=== PATIENT | female | born 1935 | race Caucasian/White ===

== ENCOUNTER 2020-10-21 19:46 | Emergency (ER) | payer MEDICARE ==
[~2020-10-21] VITALS: Ht 160 cm; Wt 70.4 kg
--- NOTE | 2020-10-21 20:49 | RAD ---
Exam: CT head and cervical spine INDICATION: Fall, pain TECHNIQUE: Sequential axial images through the head and cervical spine were obtained without the admi nistration of IV contrast. Comparisons: None FINDINGS: Head: No focal parenchymal lesion or hemorrhage is identified. There is no midline shift or sulcal effaceme nt. No acute vascular territory infarction is identified. Carter-white distinction is preserved. The ventricular system is within normal limits without compression hydrocephalus. The basal cisterns are well maintained. The visualized portions of the paranasal sinuses and mastoid air cells are well-pneumatized. No acute fractures. Cervical spine: Straightening of the cervical spine which may be positional. Vertebral body heights are well-maintain ed. Fracture to the cervical spine is not identified. Multilevel spondylotic change in cervical spine with degenerative disc disease greatest at C3-C4, C4- C5. There is mild bilateral facet arthropathy also noted. Visualized paraspinal soft tissues are unremarkable. IMPRESSION: 1. No acute intracranial abnormality. 2. Negative CT C-spine for acute traumatic injury. Exposure: One or more of the following in the visualized dose reduction techniques were utilized for this examination: 1. Automated exposure control 2. Adjustment of the MA and/or KV according to patient size Use of iterative of reconstructive technique Electronically signed by: Halley Quinonez MD (10/21/2020 8:46 PM) JOSÉ
--- NOTE | 2020-10-21 21:00 | RAD ---
Exam: Left ankle 3 views INDICATION: Ankle pain/swelling TECHNIQUE: Frontal, lateral and oblique views of the left ankle Comparisons: None FINDINGS: There is an obliquely or acute fracture through the distal fibula. Additionally there is a fracture o f the posterior malleolus. Mild dissociation at the tibiotalar joint. There is diffuse surrounding so ft tissue swelling. Bone mineralization is normal. IMPRESSION: Fractures involving the posterior malleolus and lateral malleolus with mild dissociation at the tibio talar joint. Electronically signed by: Halley Quinonez MD (10/21/2020 8:58 PM) JOSÉ
--- NOTE | 2020-10-21 21:01 | RAD ---
Exam: Left knee 3 views INDICATION: Ankle pain/well TECHNIQUE: Frontal, lateral and oblique views of the right knee Comparisons: None FINDINGS: Bone mineralization is normal. There is a obliquely oriented fracture through the proximal fibula sudhakar physis. Joint spaces are well-maintained. Soft tissues are unremarkable. IMPRESSION: Obliquely oriented fracture of the proximal fibular diaphysis. Electronically signed by: Halley Quinonez MD (10/21/2020 8:59 PM) JOSÉ
[2020-10-21 22:07] LABS: BASO % 0 % (0-3); EOS # 0.1 x10^3/uL (0.0-0.7); EOS % 1 % (0-3); HEMATOCRIT 42.7 % (36.0-47.0); LYMPH # 0.8 x10^3/uL (1.0-4.8); LYMPH % 8 % (24-48); MEAN CORPUSCULAR HEMOGLOBIN 30 pg (25-35); MEAN CORPUSCULAR HGB CONC 33 g/dL (31-37); MEAN CORPUSCULAR VOLUME 93 fL (79-100); MONO # 0.6 x10^3/uL (0.0-1.1); MONO % 6 % (0-9); NEUT # 8.3 x10^3uL (1.8-7.7); NEUT % 84 % (31-73); PLATELET COUNT 201 x10^3/uL (140-400); RED BLOOD COUNT 4.61 x10^6/uL (3.50-5.40); RED CELL DISTRIBUTION WIDTH 13.9 % (11.5-14.5); WHITE BLOOD COUNT 9.9 x10^3/uL (4.0-11.0)
--- NOTE | 2020-10-21 22:17 | PHYS DOC ---
Past History Past Medical History: A-Fib, Dementia, Hypertension Past Surgical History: Other Additional Past Surgical Histo: unknown Smoking: Non-smoker Alcohol Use: None Drug Use: None General Adult EDM: Chief Complaint: ANKLE PROBLEM HPI: HPI: 85-year-old female presents via EMS with report of left ankle pain after a fall. Patient reports occurred just prior to arrival. Patient reports she was taking the trash outside and stepped on some uneven ground hearing a pop. Patient denies hitting her head or neck pain. Denies use of blood thinners. Denies known exposure to COVID-19. Patient reports she lives at the [facility]. Patient does have a history of mild dementia. Review of Systems: Review of Systems: Constitutional: Denies fever or chills Eyes: Denies redness or eye pain HENT: Denies nasal congestion or sore throat Respiratory: Denies cough or shortness of breath Cardiovascular: Denies chest pain or palpitations GI: Denies abdominal pain, nausea, or vomiting : Denies dysuria or hematuria Musculoskeletal: Denies back pain; reports left ankle pain and knee pain Integument: Denies rash or skin lesions Review of systems limited secondary to dementia Allergies: Allergies: Allergies Coded Allergies Type Severity Reaction Last Updated Verified Sulfa (Sulfonamide Antibiotics) Allergy Unknown 10/21/20 Yes Physical Exam: PE: Constitutional: Well developed, well nourished, no acute distress, non-toxic appearance HENT: Normocephalic, atraumatic Eyes: PERRL, EOMI, conjunctiva normal, no discharge Neck: Normal range of motion, no midline tenderness, supple Lungs & Thorax: No respiratory distress, equal chest rise and fall Abdomen: Soft, no tenderness; pelvis stable and nontender Skin: Warm, dry, no erythema, no rash Back: No tenderness, no CVA tenderness Extremities: Left medial and lateral malleoli are tenderness on palpation, DP and PT bilaterally +2. Some lateral proximal fibular tenderness appreciated. Neurologic: Alert and oriented X 3, normal motor function, normal sensory function, no focal deficits noted Psychologic: Affect normal, judgment normal Current Patient Data: Vital Signs: Vital Signs Date Time Temp Pulse Resp B/P (MAP) Pulse Ox O2 Delivery O2 Flow Rate FiO2 10/21/20 21:25 71 18 167/104 (125) 95 10/21/20 20:55 Room Air 10/21/20 19:59 98.1 EKG: EKG: @2301 NSR at 69bpm, NO ST elevation, LAFB, QRS 114ms, QT/QTc 466/501ms Radiology/Procedures: Radiology/Procedures: PROCEDURE: ANKLE LEFT 3V Exam: Left ankle 3 views INDICATION: Ankle pain/swelling TECHNIQUE: Frontal, lateral and oblique views of the left ankle Comparisons: None FINDINGS: There is an obliquely or acute fracture through the distal fibula. Additionally there is a fracture of the posterior malleolus. Mild dissociation at the tibiotalar joint. There is diffuse surrounding soft tissue swelling. Bone mineralization is normal. IMPRESSION: Fractures involving the posterior malleolus and lateral malleolus with mild dissociation at the tibiotalar joint. Electronically signed by: Halley Quinonez MD (10/21/2020 8:58 PM) JOSÉ PROCEDURE: CT HEAD AND CERVICAL SPINE WO Exam: CT head and cervical spine INDICATION: Fall, pain TECHNIQUE: Sequential axial images through the head and cervical spine were obtained without the administration of IV contrast. Comparisons: None FINDINGS: Head: No focal parenchymal lesion or hemorrhage is identified. There is no midline shift or sulcal effacement. No acute vascular territory infarction is identified. Carter-white distinction is preserved. The ventricular system is within normal limits without compression hydrocephalus. The basal cisterns are well maintained. The visualized portions of the paranasal sinuses and mastoid air cells are well- pneumatized. No acute fractures. Cervical spine: Straightening of the cervical spine which may be positional. Vertebral body heights are well-maintained. Fracture to the cervical spine is not identified. Multilevel spondylotic change in cervical spine with degenerative disc disease greatest at C3-C4, C4-C5. There is mild bilateral facet arthropathy also noted. Visualized paraspinal soft tissues are unremarkable. IMPRESSION: 1. No acute intracranial abnormality. 2. Negative CT C-spine for acute traumatic injury. Exposure: One or more of the following in the visualized dose reduction techniques were utilized for this examination: 1. Automated exposure control 2. Adjustment of the MA and/or KV according to patient size Use of iterative of reconstructive technique Electronically signed by: Halley Quinonez MD (10/21/2020 8:46 PM) JOSÉ PROCEDURE: KNEE LEFT 3V Exam: Left knee 3 views INDICATION: Ankle pain/well TECHNIQUE: Frontal, lateral and oblique views of the right knee Comparisons: None FINDINGS: Bone mineralization is normal. There is a obliquely oriented fracture through the proximal fibula diaphysis. Joint spaces are well-maintained. Soft tissues are unremarkable. IMPRESSION: Obliquely oriented fracture of the proximal fibular diaphysis. Electronically signed by: Halley Quinonez MD (10/21/2020 8:59 PM) [facility] PROCEDURE: CT LOWER EXTREMITY WO LEFT INDICATION: Reason: Ankle fracture/dislocation, surgical planning / Spl. Instructions: / History: . COMPARISON: Earlier same day TECHNIQUE: Axial CT images obtained through the left ankle. One or more of the following individualized dose reduction techniques were utilized for this examination: 1. Automated exposure control; 2. Adjustment of the mA and/or kV according to patient size; 3. Use of iterative reconstruction technique. FINDINGS: Comminuted fracture of the distal fibula which appears mildly displaced and extends to the intra-articular region. There is a small fracture fragment seen intra-articular. Distal tibia fracture is identified with comminution as well as extension to the articular surface. This includes along the posterior malleolus as well as medial malleolus with displacement seen and widening of the medial mortise which can be seen with deltoid ligament injury. There is malalignment again seen at the ankle joint with widening of the tibiotalar joint anteriorly. Plantar calcaneal spur. Achilles enthesophyte. Edema within the soft tissues. Degenerative changes at the partially visualized foot. IMPRESSION: * Comminuted fracture of the distal tibia and fibula with displacement and intr a-articular extension. There is malalignment at the ankle joint again seen with persistent dislocation. There is blood seen throughout the soft tissues as well. Widening of the medial mortise which can be seen with deltoid ligament injury. Electronically signed by: Misha Mccloud MD (10/21/2020 11:11 PM) [id number] Course & Med Decision Making: Course & Med Decision Making Pertinent Labs and Imaging studies reviewed. (See chart for details) Patient presents from independent living with report of mechanical trip and fall with left ankle pain. Patient does have a history of dementia and is slightly confused at baseline. Limb neurovascularly intact. Ice applied. X-rays obtained with concern for trimalleolar fracture and proximal fibular fracture. CT head/cervical spine without acute process. Perioperative labs obtained and posted to chart. Patient requiring transfer for admission for further evaluation and treatment at facility with orthopedic coverage. Discussed case with Dr. Nikunj Contreras (orthopedics) at [facility], who is in agreement with consultation and requests CT imaging of ankle. Splint applied. Discussed with Dr. Barrios (hospitalist) who is in agreement with transfer for admission to [facility]. Discussed findings and plan with patient, who acknowledges understanding and agreement. Rapid COVID testing obtained due to need for surgery. Dragon Disclaimer: Dragon Disclaimer: This electronic medical record was generated, in whole or in part, using a voice recognition dictation system. Departure Departure: Impression: Primary Impression: Trimalleolar fracture of left ankle Qualified Codes: S82.852A - Displaced trimalleolar fracture of left lower leg, initial encounter for closed fracture Additional Impression: Maisonneuve fracture of left fibula Qualified Codes: S82.865A - Nondisplaced Maisonneuve's fracture of left leg, initial encounter for closed fracture Disposition: 05 DC/TRF OTHER TYPE INSTITUTI ([facility]- Dr. Barrios (hospitalist) accepting) Admitting Physician: Melvin Barrios Condition: STABLE Splinting Splinting : Location: Left lower extremity Hand-Made Type: orthoglass Splint: sugar-tong Pre-Proc Neuro Vasc Exam: normal Post-Proc Neuro Vasc Exam: normal, unchanged from pre-exam VEENA KIM DO Oct 21, 2020 22:17
[2020-10-21 22:35] LABS: CALCIUM 8.6 mg/dL (8.5-10.1); CREATININE 1.1 mg/dL (0.6-1.0); GFR 47.3; POTASSIUM 3.9 mmol/L (3.5-5.1)
[2020-10-21 22:51] LABS: BACTERIA,URINE 0 /HPF (0-FEW); BILIRUBIN,URINE NEG (NEG); CLARITY,URINE CLEAR; COLOR,URINE YELLOW; GLUCOSE,URINE NEG (NEG); NITRITE,URINE NEG (NEG); RBC,URINE 0 /HPF (0-2); SQUAMOUS EPITHELIAL CELL,UR OCC /LPF; UROBILINOGEN,URINE 0.2 mg/dL (0.2 mg/dL); WBC,URINE OCC /HPF (0-4)
[2020-10-21 22:51] LABS: ALBUMIN 3.4 g/dL (3.4-5.0); ALBUMIN/GLOBULIN RATIO 1.3 (1.0-1.7); MAGNESIUM 2.1 mg/dL (1.8-2.4); TOTAL BILIRUBIN 0.4 mg/dL (0.2-1.0); TOTAL PROTEIN 6.1 g/dL (6.4-8.2)
--- NOTE | 2020-10-21 23:12 | EKG ---
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
--- NOTE | 2020-10-21 23:13 | RAD ---
INDICATION: Reason: Ankle fracture/dislocation, surgical planning / Spl. Instructions: / History: . COMPARISON: Earlier same day TECHNIQUE: Axial CT images obtained through the left ankle. One or more of the following individualized dose reduction techniques were utilized for this examinat ion: 1. Automated exposure control; 2. Adjustment of the mA and/or kV according to patient size; 3 . Use of iterative reconstruction technique. FINDINGS: Comminuted fracture of the distal fibula which appears mildly displaced and extends to the intra-shorty cular region. There is a small fracture fragment seen intra-articular. Distal tibia fracture is identified with comminution as well as extension to the articular surface. T his includes along the posterior malleolus as well as medial malleolus with displacement seen and wid ening of the medial mortise which can be seen with deltoid ligament injury. There is malalignment aga in seen at the ankle joint with widening of the tibiotalar joint anteriorly. Plantar calcaneal spur. Achilles enthesophyte. Edema within the soft tissues. Degenerative changes at the partially visualized foot. IMPRESSION: * Comminuted fracture of the distal tibia and fibula with displacement and intra-articular extension . There is malalignment at the ankle joint again seen with persistent dislocation. There is blood see n throughout the soft tissues as well. Widening of the medial mortise which can be seen with deltoid ligament injury. Electronically signed by: Misha Mccloud MD (10/21/2020 11:11 PM) [id number]
[2020-10-21 23:55] VITALS: BP 169/86
== END 2020-10-22 00:04 | disposition short-term general hospital (02) ==
LOC: ER 19:46
DX: S82.852A Displaced trimalleolar fracture of left lower leg, initial encounter for closed fracture (principal); S82.865A Nondisplaced Maisonneuve's fracture of left leg, initial encounter for closed fracture; I48.91 Unspecified atrial fibrillation; F03.90 Unspecified dementia, unspecified severity, without behavioral disturbance, psychotic disturbance, mood disturbance, and anxiety; I10 Essential (primary) hypertension; Z20.822 Contact with and (suspected) exposure to COVID-19; Z88.2 Allergy status to sulfonamides; W18.39XA Other fall on same level, initial encounter; Y93.89 Activity, other specified; Y92.89 Other specified places as the place of occurrence of the external cause; Y99.8 Other external cause status
CPT/HCPCS: 29515; 36415; 70450; 72125; 73562; 73610; 73700; 80053; 81001; 82553; 83735; 84484; 85025; 85610; 85730; 87086; 87426; 93005; 99285; U0003; C9803